=== PATIENT | male | born 1995 ===

== ENCOUNTER → 2021-01-04 | Outpatient (CLI) | payer OTHER ==
[2021-01-07 03:10] LABS: HSV-1 DNA Negative (Negative); HSV-2 DNA Negative (Negative)
== END | disposition home or self-care (01) ==
LOC: LAB SHORT 16:52 → LAB EV 16:52
PROVIDERS: Physician Assistant Medical
DX: N48.9 Disorder of penis, unspecified (principal)
CPT/HCPCS: 87070; 87077; 87186; 87205; 87529